=== PATIENT | male | born 1965 | race Caucasian/White ===

== ENCOUNTER 2018-09-18 15:08 | Outpatient (CLI) | payer BC ==
--- NOTE | 2018-09-18 15:57 | RAD ---
LEFT ANKLE RADIOGRAPHS TWO VIEWS: 09/18/18 PROVIDED CLINICAL HISTORY: MRI screening. FINDINGS: Postoperative changes of posterior subtalar arthrodesis are demonstrated. 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 Plantar and posterior calcaneal enthesophyte for mation is noted. IMPRESSION: Posterior subtalar arthrodesis. POS: [facility]
--- NOTE | 2018-09-18 19:25 | MRI ---
MRI OF RIGHT KNEE PERFORMED WITHOUT CONTRAST ENHANCEMENT: 09/18/18 HISTORY: Medial knee pain for the past five or six weeks. The anterior and posterior cruciate ligaments are intact. The lateral meniscus is normal in shape and appearance. There is some increased intrameniscal signal change within the body of the medial meniscus but this does not appear to contact the meniscal surfac e. The medial and lateral collateral ligaments and iliotibial band regions are unremarkable. The patellar articular cartilage shows some minimal articular cartilage fibrillation along the latera l facets and there is some corresponding changes of the more inferior articular surface of the trochl ea. IMPRESSION: 1. No evidence of meniscal or cruciate ligament injury. 2. Articular cartilage loss involving the patellofemoral joint space, mainly the lateral facet a nd lateral side of the trochlear groove. POS: [facility]
== END 2018-09-18 15:09 | disposition home or self-care (01) ==
LOC: BICMRI 15:08
PROVIDERS: ATTEND Orthopaedic Surgery
DX: S83.241A Other tear of medial meniscus, current injury, right knee, initial encounter (principal); Z98.1 Arthrodesis status

== ENCOUNTER 2021-07-04 09:57 | Outpatient (CLI) | payer OTHER, BC | END 2021-07-04 09:58 | disposition home or self-care (01) | LOC: BICRAD 09:57 | PROVIDERS: ATTEND Physician Assistant | DX: M54.50 Low back pain, unspecified (principal); M47.816 Spondylosis without myelopathy or radiculopathy, lumbar region; N20.0 Calculus of kidney; V89.2XXA Person injured in unspecified motor-vehicle accident, traffic, initial encounter | CPT/HCPCS: 72100 ==

== ENCOUNTER 2023-01-17 06:15 | Observation (INO) | payer BC ==
[2023-01-17] MEDS ORDERED: Nitroglycerin 2% Ointment 1 INCH/1 GM Packet ONE (06:31)
[2023-01-17] MEDS ORDERED: Aspirin Chewable 81 MG TAB ONE (06:31)
[2023-01-17] MEDS ORDERED: Ondansetron PF 4 MG/2 ML Vial ONE (06:31)
[2023-01-17 06:39] LABS: #Basophils 0.1 thou/uL (0.0-0.2); #Eosinphils 0.3 thou/uL (0.0-0.7); #Monocytes 0.5 thou/uL (0.11-0.59); #Neutrophils 4.3 thou/uL (1.40-6.50); %Basophils 1.5 % (0.0-1.0); %Eosinophils 4.2 % (0.0-10.0); %Lymphocytes 30.6 % (21.0-51.0); %Monocytes 6.5 % (0.0-10.0); %Neutrophils 56.8 % (42.0-75.0); Hemoglobin 15.9 g/dL (14.0-18.0); Mean Corpuscular HGB CONC 33.9 g/dL (32.0-36.0); Mean Corpuscular Hemoglobin 32.4 pg (27.0-31.0); Mean Corpuscular Volume 95.7 fl (78.0-98.0); Mean Platelet Volume 11.2 fL (7.4-10.4); Platelet Count 164 10x3/uL (130-400); RBC Distribution Width 13.3 % (11.5-14.5); White Blood Cell (WBC) Count 7.6 10x3/uL (4.8-10.8)
[2023-01-17 07:04] LABS: ALT (SGPT) 11 U/L (8-55); AST (SGOT) 16 U/L (5-34); Albumin 4.1 g/dL (3.5-5.0); Alkaline Phosphatase 59 U/L (40-110); Anion Gap 11 mmol/L (10-20); BUN (Urea Nitrogen) 11 mg/dL (8.4-25.7); Bilirubin, Total 0.6 mg/dL (0.2-1.2); Calc. Creatinine Clearance 0 mL/min (70-130); Calcium 9.2 mg/dL (7.8-10.44); Carbon Dioxide 29 mmol/L (22-29); Chloride 105 mmol/L (98-107); Estimated GFR 102; Glucose 86 mg/dL (70-105); Potassium 4.2 mmol/L (3.5-5.1); Protein, Total 6.1 g/dL (6.0-8.3); Sodium 141 mmol/L (136-145)
[2023-01-17] MEDS ORDERED: Morphine 4 MG/ML VIAL ONE (08:41)
[2023-01-17 10:48] LABS: Troponin I 0.013 ng/mL (< 0.028)
[2023-01-17] MEDS ORDERED: Ondansetron PF 4 MG/2 ML Vial IVP PRN (11:45)
[2023-01-17 13:50] LABS: Troponin I Less than 0.010 ng/mL (< 0.028)
[2023-01-17 15:26] VITALS: BMI 22.4
[2023-01-17] MEDS ORDERED: Carvedilol 6.25 MG TAB PO SCH (17:00)
[2023-01-17 17:31] LABS: Troponin I Less than 0.010 ng/mL (< 0.028)
[2023-01-17] MEDS: Carvedilol 25 MG TAB PO SCH (20:09)
[2023-01-17] MEDS: Famotidine 20 MG TAB PO SCH ×2 (20:09→20:11)
[2023-01-17] MEDS: Amlodipine 5 MG TAB PO SCH (20:09)
[2023-01-17] MEDS ORDERED: Rosuvastatin 20 MG TAB PO SCH (21:00)
[2023-01-18] MEDS: Famotidine 20 MG TAB PO SCH (07:50)
[2023-01-18 08:45] VITALS: BP 164/76; TEMP 97.4
[2023-01-18] MEDS ORDERED: Loratadine 10 MG TAB PO SCH (09:00)
[2023-01-18] MEDS ORDERED: Multivitamin W/ Minerals 1 TAB PO SCH (09:00)
[2023-01-18] MEDS ORDERED: Amlodipine 10 MG TAB PO SCH (09:00)
[2023-01-18] MEDS ORDERED: Aspirin Chewable 81 MG TAB PO SCH (09:00)
[2023-01-18] MEDS ORDERED: Lisinopril 20 MG TAB PO SCH (09:00)
[2023-01-18] MEDS: Amlodipine 5 MG TAB PO SCH (10:52)
[2023-01-18] MEDS: Carvedilol 25 MG TAB PO SCH (10:52)
== END 2023-01-18 11:40 | disposition home or self-care (01) ==
LOC: ERS 06:15 → ERHOLD 12:27 → 2SW 14:54
PROVIDERS: ADMIT Internal Medicine; ATTEND Internal Medicine
DX: R07.89 Other chest pain (principal); I25.10 Atherosclerotic heart disease of native coronary artery without angina pectoris; I10 Essential (primary) hypertension; F17.210 Nicotine dependence, cigarettes, uncomplicated; Z88.8 Allergy status to other drugs, medicaments and biological substances; Z79.82 Long term (current) use of aspirin; Z79.899 Other long term (current) drug therapy; Z95.5 Presence of coronary angioplasty implant and graft; Z98.84 Bariatric surgery status
CPT/HCPCS: 36415; 71045; 80053; 83880; 84484; 85025; 93005; 96361; 96374; 96375; G0378; J2270; J2405